=== PATIENT | female | born 1985 ===

== ENCOUNTER 2020-11-02 09:32 | Emergency (ER) | payer OTHER ==
[~2020-11-02] VITALS: Ht 177.8 cm; Wt 86.4 kg
[2020-11-02 09:41] VITALS: TEMP 98.4
[2020-11-02] MEDS ORDERED: NP THYROID60 MG PO (10:30)
[2020-11-02] MEDS ORDERED: REVIA 50MG TABL50 MG PO (10:30)
[2020-11-02] MEDS ORDERED: FLEXERIL 1010 MG/TAB PO (12:47)
[2020-11-02 13:00] VITALS: BP 132/84; PULSE 83
== END 2020-11-02 13:07 | disposition home or self-care (01) ==
LOC: COL.ER 09:32
DX: M51.27 Other intervertebral disc displacement, lumbosacral region (principal); E03.9 Hypothyroidism, unspecified; Z79.890 Hormone replacement therapy
CPT/HCPCS: J1200; J1885